=== PATIENT | female | born 1985 | race American Indian/Alaskan Native ===

== ENCOUNTER 2021-05-22 23:27 | Emergency (ER) | payer BC ==
--- NOTE | 2021-05-23 00:56 | Emergency Department Report ---
ED Palpitations HPI - General Chief Complaint: Arrhythmia/Palpitations Stated Complaint: CHEST PAIN Time Seen by Provider: 05/23/21 00:37 Source: patient Mode of arrival: Ambulatory Limitations: No Limitations - Related Data Previous Rx's Medication Instructions Recorded Last Taken Type HYDROcodone/APAP 5-325 [[place] 1 each PO Q6HR PRN #12 tablet 05/23/21 Unknown Rx 5/325] Penicillin V Potassium 500 mg PO TID #21 tablet 05/23/21 Unknown Rx Allergies Allergy/AdvReac Type Severity Reaction Status Date / Time No Known Allergies Allergy Verified 05/22/21 23:33 ED Review of Systems ROS: Stated complaint: CHEST PAIN Other details as noted in HPI ED Past Medical Hx - Past Medical History Previous Medical History?: No - Surgical History Additional Surgical History: lipo surgery - Medications Home Medications: Home Medications Medication Instructions Recorded Confirmed Last Taken Type HYDROcodone/APAP 5-325 [[place] 1 each PO Q6HR PRN #12 tablet 05/23/21 Unknown Rx 5/325] Penicillin V Potassium 500 mg PO TID #21 tablet 05/23/21 Unknown Rx ED Physical Exam - General Limitations: No Limitations ED Course Vital Signs 05/22/21 05/23/21 23:29 03:39 Temperature 98.7 F Pulse Rate 123 H 96 H Respiratory 17 17 Rate Blood Pressure 149/93 153/94 [Right] O2 Sat by Pulse 98 99 Oximetry - Reevaluation(s) Reevaluation #1: 05/23/21 00:54 EKG noted. IV and labs ordered. Old records noted. ED Medical Decision Making - Lab Data Result diagrams: 05/23/21 00:54 05/23/21 00:54 - EKG Data -: EKG Interpreted by Me - EKG Data 05/23/21 00:56 EKG shows a sinus tachycardia 117. Intervals are normal including a QRS of 76 and a QT corrected of 421. Patient has no ST elevation to suggest STEMI. There is diffuse ST depression that appears to be rate related. This is ST d epression and ST flattening. There is no old EKG for comparison. Critical Care Time: No Critical care attestation.: If time is entered above; I have spent that time in minutes in the direct care of this critically ill patient, excluding procedure time. ED Disposition Clinical Impression: Palpitations, Dentalgia, Apical alveolar abscess Disposition: HOME / SELF CARE / HOMELESS Is pt being admited?: No Condition: Stable Instructions: Dental Abscess, Acute Pain, Adult, Palpitations Additional Instructions: Have a soft diet to drink plenty water. Return for problems. Stop taking benzocaine. Return for palpitations, vomiting, diarrhea, shortness of breath, or other concerns. Take the antibiotics. See a dentist as soon as possible. Prescriptions: HYDROcodone/APAP 5-325 [[place] 5/325] 1 each PO Q6HR PRN #12 tablet PRN Reason: Pain Penicillin V Potassium 500 mg PO TID #21 tablet
[2021-05-23 01:06] LABS: Basophils # (Auto) 0.1 K/mm3 (0.0-0.1); Basophils % (Auto) 0.8 % (0.0-1.8); Eosinophils # (Auto) 0.1 K/mm3 (0.0-0.4); Eosinophils % (Auto) 1.3 % (0.0-4.3); Hematocrit 33.1 % (30.3-42.9); Hemoglobin 10.9 gm/dl (10.1-14.3); Lymphocytes # (Auto) 1.7 K/mm3 (1.2-5.4); Lymphocytes % (Auto) 24.4 % (13.4-35.0); Mean Corpuscular HGB Conc 33 % (30-34); Mean Corpuscular Volume 88 fl (79-97); Monocytes # (Auto) 0.8 K/mm3 (0.0-0.8); Monocytes % (Auto) 11.4 % (0.0-7.3); Platelet Count 252 K/mm3 (140-440); Red Blood Count 3.74 M/mm3 (3.65-5.03); Red Cell Distribution Width 16.8 % (13.2-15.2)
[2021-05-23 01:22] LABS: Blood Urea Nitrogen 9 mg/dL (7-17); Calcium 9.3 mg/dL (8.4-10.2); Hemolysis Index 13
[2021-05-23 01:26] LABS: BUN/Creatinine Ratio 18
[2021-05-23] MEDS ORDERED: ACETAMINOPHEN 500 MG TAB PO ONE (02:01)
[2021-05-23 03:40] VITALS: BP 153/94
[2021-05-23 04:22] LABS: ABG Base Excess -5.7 mmol/L (-2.0-3.0); ABG HCO3 17.9 mmol/L (20.0-26.0); ABG Methemoglobin 0.4 % (0.0-1.5); ABG Oxygen Saturation 94.6 % (95.0-99.0); ABG PCO2 29.1 mm Hg; ABG PH 7.407 pH Units (7.350-7.450); ABG PO2 70.1 mm Hg (80.0-90.0)
[2021-05-23] MEDS ORDERED: HYDROcodone/ACETAMINOPHEN 5-325 MG TAB PO ONE (04:31)
[2021-05-23] MEDS ORDERED: PENICILLIN V POTASSIUM 250 MG TAB PO ONE (04:31)
--- NOTE | 2021-05-25 12:50 | Electrocardiograph Report ---
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
== END 2021-05-23 05:21 | disposition home or self-care (01) ==
LOC: ED 23:27
DX: R00.2 Palpitations (principal); K08.89 Other specified disorders of teeth and supporting structures; K04.7 Periapical abscess without sinus
CPT/HCPCS: 36415; 80048; 82803; 85025; 93005; 99283